=== PATIENT | female | born 1965 | race Caucasian/White ===

== ENCOUNTER 2021-10-11 11:12 | Emergency (ER) | payer BC, OTHER ==
[~2021-10-11] VITALS: Ht 170 cm; Wt 113.0 kg
--- NOTE | 2021-10-11 11:51 | ED Lower Extremity ---
General Chief Complaint: Lower Extremity Stated Complaint: LT FOOT DISCOLORATION/PAIN Nursing Triage Note: ARRIVED VIA AMB TO ROOM 06 WITH COMPLAINTS OF LEFT FOOT PAIN, SWELLING, AND DISCOLORATION THAT COMES AND GOES. HAS BEEN SEEN BY MULTIPLE FACILITES AND WAS TOLD SHE HAS A BROKEN HEEL BONE AND WAS TOLD TO COME TO THE ER FOR AN ULTRASOUND. Source: patient History of Present Illness Date Seen by Provider: Oct 11, 2021 Time Seen by Provider: 11:18 Initial Comments 55-year-old female presenting with complaints of right heel pain for couple of months. She has been getting swelling and discoloration that comes and goes especially in the last week. She was seen in an emergency department and told that she had cellulitis. She was started on antibiotics and then followed up in the [place] clinic with Jules MONTES. When seen in the clinic they did x-rays and she was told that she had a broken heel bone. They did Rocephin IM shots in addition to Keflex with doxycycline. She states she was running some subjective fevers which have resolved since she was taking antibiotics. Since she was still getting swelling to her foot and when it is dependent it worse she is up walking it has a purple discoloration that resolves with elevation she had called Jules to see about other evaluation. They had talked about doing an ultrasound but rather than try to get an outpatient authorization for an ultrasound they told her to come to the emergency department. Patient was also advised by coworkers that she should be evaluated for osteomyelitis. I advised that that would usually take an MRI or bone scan to check for osteomyelitis. Severity: moderate Pain/Injury Location: left foot Method of Injury: unknown Modifying Factors: Worse With Movement (Walking and having her foot dependent makes the foot have a purple discoloration and be more swollen) Allergies and Home Medications Allergies Coded Allergies: duloxetine (Verified Adverse Reaction, Unknown, chest pain, 10/11/21) Patient Home Medication List Home Medication List Reviewed: Yes Review of Systems Constitutional: see HPI EENTM: no symptoms reported Respiratory: no symptoms reported Cardiovascular: no symptoms reported Gastrointestinal: no symptoms reported Genitourinary: no symptoms reported Musculoskeletal: see HPI Skin: see HPI Psychiatric/Neurological: Paresthesia (Bilateral feet due to peripheral neuropathy) Past Fiwapad-Wqxuim-Vtcnwn Hx Patient Social History Tobacco Use?: No Substance use?: No Alcohol Use?: No Immunizations Up To Date First/Initial COVID19 Vaccinat: UNKNOWN COVID19 Vaccine Hides Soaker: GEOFFREY Past Medical History Surgery/Hospitalization HX: Periphearl Neuropathy, Hypertension, Hypothyroid Physical Exam Vital Signs Vital Signs - First Documented 10/11/21 11:15 Temp 37.0 Pulse 63 Resp 16 B/P (MAP) 115/69 (84) Pulse Ox 94 O2 Delivery Room Air Capillary Refill : Less Than 3 Seconds Height, Weight, BMI Height: '" Weight: lbs. oz. kg; 39.00 BMI Method: General Appearance: WD/WN, no apparent distress Cardiovascular: No normal peripheral pulses (1/4 dorsalis pedis and posterior tibialis BLE) Feet: left foot swelling (left foot more swollen than right and has purple discoloration that improves with elevation) Neurologic/Tendon: normal motor functions, normal tendon functions, sensory deficit (decreased sensation to BLE from peripheral neuropathy) Neurologic/Psychiatric: alert, oriented x 3 Skin: warm/dry Progress/Results/Core Measures Results/Orders Lab Results Laboratory Tests Test 10/11/21 11:51 Range/Units White Blood Count 7.8 4.3-11.0 10^3/uL Red Blood Count 4.47 3.80-5.11 10^6/uL Hemoglobin 13.5 11.5-16.0 g/dL Hematocrit 39 35-52 % Mean Corpuscular Volume 88 80-99 fL Mean Corpuscular Hemoglobin 30 25-34 pg Mean Corpuscular Hemoglobin Concent 34 32-36 g/dL Red Cell Distribution Width 12.2 10.0-14.5 % Platelet Count 332 130-400 10^3/uL Mean Platelet Volume 9.5 9.0-12.2 fL Immature Granulocyte % (Auto) 0 % Neutrophils (%) (Auto) 40 L 42-75 % Lymphocytes (%) (Auto) 49 H 12-44 % Monocytes (%) (Auto) 5 0-12 % Eosinophils (%) (Auto) 5 0-10 % Basophils (%) (Auto) 1 0-10 % Neutrophils # (Auto) 3.2 1.8-7.8 10^3/uL Lymphocytes # (Auto) 3.8 1.0-4.0 10^3/uL Monocytes # (Auto) 0.4 0.0-1.0 10^3/uL Eosinophils # (Auto) 0.4 H 0.0-0.3 10^3/uL Basophils # (Auto) 0.1 0.0-0.1 10^3/uL Immature Granulocyte # (Auto) 0.0 0.0-0.1 10^3/uL Prothrombin Time 13.5 12.2-14.7 SEC INR Comment 1.0 0.8-1.4 Activated Partial Thromboplast Time 35 24-35 SEC C-Reactive Protein 2.05 H <0.50 MG/DL My Orders Orders - ELISABETH VARELA MD Us Venous Lower Ext Lt (10/11/21 11:36) Cbc With Automated Diff (10/11/21 11:38) Crp Fs (10/11/21 11:38) Protime With Inr (10/11/21 11:38) Partial Thromboplastin Time (10/11/21 11:38) Vital Signs/I&O 10/11/21 10/11/21 11:15 12:51 Temp 37.0 Pulse 63 65 Resp 16 16 B/P (MAP) 115/69 (84) 111/78 Pulse Ox 94 94 O2 Delivery Room Air Room Air Blood Pressure Mean: 84 Progress Progress Note #1: Progress Note Try to get office notes, labs, x-ray reports from [place]. Obtain ultrasound of the left lower extremity to look at blood flow. Check basic labs with CBC coags and CRP. Progress Note #2: Progress Note Records from [facility] in [place] show xrays had a report of heel spur but no fracture. UA had blood in it. US of LE shows no blood clot or DVT. CBC today has normal WBC count but elevated lymphocytes on differential. Coags normal. CRP is elevated at 2.05 with cut off for high normal at 0.5. Will review results with pt and encourage using compression stockings and elevation to help with circulation and swelling. Check with clinic if they are concerned for osteomyelitis or not improving then MRI or Bone scan would help look for that. Diagnostic Imaging Diagonstic Imaging: Ultrasound Plain Films/CT/US/NM/MRI: leg Comments [facility] [place], [place] NAME: MARGIEMANDY Paloma GARDUNO REC#: [id number] PT STATUS: REG ER : 1965 PHYSICIAN: ELISABETH VARELA MD ADMIT DATE: 10/11/21/ER FS Draft Date of Exam:10/11/21 US VENOUS LOWER EXT LT INDICATION: Left foot and leg swelling and pain. COMPARISON: None. TECHNIQUE: Duplex, high-scale and color-flow imaging of the left lower extremity venous system was performed. FINDINGS: The common femoral vein, superficial femoral vein, profunda femoris, and popliteal veins are normal. These vessels show normal compressibility, color flow, and Doppler augmentation. The deep calf veins, although not very well seen, demonstrate no distinct intraluminal thrombus. IMPRESSION: Negative venous Doppler of the left lower extremity. Dictated on workstation # [id number] Dict: 10/11/21 1231 Trans: 10/11/21 1233 [id number] Interpreted by: MAGGIE HULL MD Electronically signed by: Departure Impression Primary Impression: Swelling of left foot Additional Impressions: Discoloration of skin of foot Heel spur Qualified Codes: M77.32 - Calcaneal spur, left foot Disposition: 01 HOME, SELF-CARE Condition: Stable Departure-Patient Inst. Decision time for Depature: 12:40 Referrals: JULES MONTES (PCP) Primary Care Physician EFRA LÓPEZ MD (Family) Primary Care Physician Patient Instructions: Heel Spurs (DC), Dependent Edema (DC) Add. Discharge Instructions: Wear compression socks or hose to help with circulation and swelling. Try to keep foot elevated to help with swelling If continued problems or not improving check with clinic as they may need to do additional testing beyond what is available in the Emergency Department. All discharge instructions reviewed with patient and/or family. Voiced understanding. ELISABETH VARELA MD Oct 11, 2021 11:51
[2021-10-11 11:55] LABS: BASOPHILS # (AUTO) 0.1 10^3/uL (0.0-0.1); BASOPHILS % (AUTO) 1 % (0-10); EOSINOPHILS # (AUTO) 0.4 10^3/uL (0.0-0.3); EOSINOPHILS % (AUTO) 5 % (0-10); HEMATOCRIT 39 % (35-52); HEMOGLOBIN 13.5 g/dL (11.5-16.0); LYMPHOCYTES # (AUTO) 3.8 10^3/uL (1.0-4.0); LYMPHOCYTES % (AUTO) 49 % (12-44); MEAN CORPUSCULAR HEMOGLOBIN 30 pg (25-34); MEAN CORPUSCULAR HGB CONC 34 g/dL (32-36); MEAN CORPUSCULAR VOLUME 88 fL (80-99); MEAN PLATELET VOLUME 9.5 fL (9.0-12.2); MONOCYTES # (AUTO) 0.4 10^3/uL (0.0-1.0); MONOCYTES % (AUTO) 5 % (0-12); NEUTROPHILS # (AUTO) 3.2 10^3/uL (1.8-7.8); NEUTROPHILS % (AUTO) 40 % (42-75); PLATELET COUNT 332 10^3/uL (130-400); WHITE BLOOD COUNT 7.8 10^3/uL (4.3-11.0)
[2021-10-11 12:10] LABS: PROTHROMBIN TIME PATIENT 13.5 SEC (12.2-14.7)
--- NOTE | 2021-10-11 12:33 | Diagnostic Imaging Report ---
INDICATION: Left foot and leg swelling and pain. COMPARISON: None. TECHNIQUE: Duplex, high-scale and color-flow imaging of the left lower extremity venous system was performed. FINDINGS: The common femoral vein, superficial femoral vein, profunda femoris, and popliteal veins are normal. These vessels show normal compressibility, color flow, and Doppler augmentation. The deep calf veins, although not very well seen, demonstrate no distinct intraluminal thrombus. IMPRESSION: Negative venous Doppler of the left lower extremity. Dictated by: Dictated on workstation # [id number]
[2021-10-11 12:51] VITALS: BP 111/78
== END 2021-10-11 12:47 | disposition home or self-care (01) ==
LOC: ER FS 11:15
DX: M77.32 Calcaneal spur, left foot (principal); R23.8 Other skin changes
CPT/HCPCS: 36415; 85025; 85610; 85730; 86141